=== PATIENT | male | born 1975 | race Two or more races ===

== ENCOUNTER 2023-07-30 23:27 | Inpatient (IN) | payer SELFPAY ==
[~2023-07-30] VITALS: Ht 175.3 cm; Wt 101.3 kg
[2023-07-31] VITALS (18 sets, daily range): BP systolic 125–162; BP diastolic 69–99; PULSE 65–101; RESP 15–20; TEMP 97.7–98.2; O2SAT 93–100
[2023-07-31 00:10] LABS: Basophils # (auto) 0 10 ^3/uL (0-0.2); Basophils % (auto) 0.7 % (0.0-2.0); Eosinophils # (auto) 0.2 10 ^3/uL (0-0.8); Eosinophils % (auto) 2.9 % (0.0-7.0); Hematocrit 45.7 % (41.0-53.0); Hemoglobin 16.1 g/dL (13.5-17.5); Lymphocytes # (auto) 3.1 10 ^3/uL (0.4-5.4); Lymphocytes % (auto) 43.4 % (10.0-50.0); Mean Corpuscular Hemoglobin 30.9 pg (28.0-32.0); Mean Corpuscular Hgb Conc. 35.2 g/dL (32.0-36.0); Mean Corpuscular Volume 87.9 fL (80.0-100.0); Monocytes # (auto) 0.7 10 ^3/uL (0-1.3); Monocytes % (auto) 9.8 % (0.0-12.0); Neutrophils % (auto) 43.2 % (37.0-80.0); Nucleated Red Blood Cells % 0.1 %; Red Blood Cells 5.19 10^6/uL (4.5-5.90); Red Cell Distribution Width 12.9 % (11.8-14.3)
[2023-07-31 00:27] LABS: Alanine Aminotransferase 48 U/L (7-40); Albumin 4.5 g/dL (3.2-4.8); Alkaline Phosphatase 77 U/L (46-116); Anion Gap 5 (5-15); Aspartate Aminotransferase 36 U/L (13-40); Bilirubin, Total 1.2 mg/dL (0.2-1.0); Blood Urea Nitrogen 13 mg/dL (9-23); Calcium 10.2 mg/dL (8.7-10.4); Carbon Dioxide 33 mmol/L (20-30); Chloride 105 mmol/L (98-107); Glucose 98 mg/dL (74-106); Potassium 3.1 mmol/L (3.5-5.1); Sodium 143 mmol/L (136-145); Total Protein 7.2 g/dL (5.7-8.2)
[2023-07-31] MEDS: ASPirin 325 MG TAB PO ONE (01:20)
[2023-07-31] MEDS ORDERED: ACETAMINOPHEN 325 MG TAB PO PRN (02:45)
[2023-07-31] MEDS ORDERED: TEMAZEPAM 15 MG CAP PO PRN (02:45)
[2023-07-31] MEDS ORDERED: ONDANSETRON HCL 4 MG/2 ML VIAL IV PRN (02:45)
[2023-07-31] MEDS ORDERED: MORPHINE SULFATE INJ 2 MG/ml SYRG IV PRN (02:45)
[2023-07-31] MEDS ORDERED: NITROGLYCERIN 0.4 MG SL TAB SL PRN (02:45)
[2023-07-31] MEDS: ENOXAPARIN SOD 100 MG/1 ML SYRINGE SC ONE (03:31)
[2023-07-31] MEDS: hydrALAZINE HCL 20 MG/ML VL IV ONE (04:40)
[2023-07-31] MEDS: ALBUTEROL SULF 2.5 MG/0.5ML(0.5%) NEB SOLN NEB PRN (05:45)
[2023-07-31] MEDS ORDERED: hydrALAZINE HCL 20 MG/ML VL IV PRN (09:15)
[2023-07-31] MEDS ORDERED: ASPirin 81 mg TAB PO SCH (10:00)
[2023-07-31] MEDS ORDERED: LISINOPRIL 5 MG TAB PO SCH (10:00)
[2023-07-31 10:05] LABS: Magnesium 2.1 mg/dL (1.6-2.6)
[2023-07-31 10:19] LABS: INR 1.05 (0.9-1.15); Partial Thromboplastin Time 32.6 SEC (24.5-34.5); Prothrombin Time 11.1 sec (9.3-11.8)
[2023-07-31] MEDS: POTASSIUM EFFERVESENT TAB 25 MEQ PO ONE (11:24)
[2023-07-31] MEDS: LOSARTAN POTASSIUM 50 MG TAB PO SCH (11:26)
[2023-07-31] MEDS: ASPirin 81 mg TAB PO SCH (11:26)
[2023-07-31] MEDS: methylPREDNISolone SOD SUCC 125 MG/2 ML VL IV ONE (11:28)
[2023-07-31] MEDS: ALBUTEROL SULF 2.5 MG/0.5ML(0.5%) NEB SOLN NEB SCH (11:34)
[2023-07-31] MEDS: IPRATROPIUM BROM 0.5 MG/2.5ML INH SOL NEB SCH (11:35)
[2023-07-31 13:26] LABS: Urine Bacteria FEW /hpf (None Seen); Urine Blood Negative /uL (Negative); Urine Clarity Turbid (Clear); Urine Color Yellow (Yellow); Urine Mucus FEW (None Seen); Urine Protein, UAD TRACE (Negative); Urine Specific Gravity 1.023 (1.001-1.035); Urine Urobilinogen Normal (Negative); Urine WBC 1 /hpf (0 - 3)
[2023-07-31 13:34] LABS: Amphetamine Screen, Urine Neg (NEGATIVE); Barbiturate Scree,Urine Neg (NEGATIVE); Benzodiazephine Screen, Urine Neg (NEGATIVE); Cannabinoid Screen, Urine Neg (NEGATIVE); Cocaine Screen, Urine Neg (NEGATIVE); Opiate Scree,Urine Neg (NEGATIVE); Phencyclidine Screen, Urine Neg (NEGATIVE)
[2023-07-31] MEDS ORDERED: LOSA-534 PO (14:34)
[2023-07-31] MEDS: ATORVASTATIN 20 MG TAB PO SCH (21:46)
[2023-07-31] MEDS: methylPREDNISolone SOD SUCC 40 MG/ML VL IV SCH (21:46)
[2023-07-31] MEDS: METOPROLOL TARTRATE 25 MG TAB PO SCH (21:47)
[2023-07-31] MEDS ORDERED: ATORVASTATIN 20 MG TAB PO SCH (22:00)
[2023-08-01] VITALS (15 sets, daily range): BP systolic 104–135; BP diastolic 65–85; PULSE 77–100; RESP 16–20; TEMP 97.7–98.4; O2SAT 94–100
[2023-08-01 07:05] LABS: Basophils # (auto) 0 10 ^3/uL (0-0.2); Basophils % (auto) 0.1 % (0.0-2.0); Eosinophils # (auto) 0 10 ^3/uL (0-0.8); Hematocrit 47.4 % (41.0-53.0); Hemoglobin 16.7 g/dL (13.5-17.5); Lymphocytes # (auto) 1.3 10 ^3/uL (0.4-5.4); Mean Corpuscular Hemoglobin 30.9 pg (28.0-32.0); Mean Corpuscular Hgb Conc. 35.2 g/dL (32.0-36.0); Mean Corpuscular Volume 87.7 fL (80.0-100.0); Monocytes # (auto) 0.2 10 ^3/uL (0-1.3); Monocytes % (auto) 1.5 % (0.0-12.0); Neutrophils % (auto) 89.4 % (37.0-80.0); Red Blood Cells 5.41 10^6/uL (4.5-5.90); Red Cell Distribution Width 12.9 % (11.8-14.3); White Blood Cell 14.5 10^3/uL (4.4-10.8)
[2023-08-01 07:07] LABS: Alanine Aminotransferase 42 U/L (7-40); Albumin 4.6 g/dL (3.2-4.8); Alkaline Phosphatase 76 U/L (46-116); Anion Gap 10 (5-15); Aspartate Aminotransferase 23 U/L (13-40); BUN/Creatinine Ratio 23.1 (10.0-20.0); Carbon Dioxide 26 mmol/L (20-30); Chloride 105 mmol/L (98-107); Glucose 141 mg/dL (74-106); Potassium 3.3 mmol/L (3.5-5.1); Sodium 141 mmol/L (136-145)
[2023-08-01 07:08] LABS: Total Protein 7.4 g/dL (5.7-8.2)
[2023-08-01 07:11] LABS: Blood Urea Nitrogen 31 mg/dL (9-23)
[2023-08-01] MEDS: SODIUM CHLORIDE 0.9% 500 ML IV ONE ×2 (07:45→09:15)
[2023-08-01] MEDS: SODIUM CHLORIDE 0.9% 1,000 ML IV SCH (09:00)
[2023-08-01] MEDS: POTASSIUM CHLORIDE 40 MEQ, LIDOCAINE 1% (LOCAL ANESTH.) 4 ML in SODIUM CHL 0.9% 250 ML IV ONE (09:39)
[2023-08-01] MEDS: ENOXAPARIN SOD 40 MG/0.4 ML SYRINGE SC SCH (09:50)
[2023-08-01] MEDS ORDERED: methylPREDNISolone SOD SUCC 40 MG/ML VL IV SCH (10:00)
[2023-08-01] MEDS: LEVALBUTEROL HCL 1.25 MG/3 ML NEB NEB SCH (11:35)
[2023-08-02] VITALS (19 sets, daily range): BP systolic 124–151; BP diastolic 63–99; PULSE 58–94; RESP 12–20; TEMP 97.4–98; O2SAT 94–100
[2023-08-02 06:16] LABS: Basophils # (auto) 0.1 10 ^3/uL (0-0.2); Basophils % (auto) 0.6 % (0.0-2.0); Eosinophils # (auto) 0 10 ^3/uL (0-0.8); Eosinophils % (auto) 0.4 % (0.0-7.0); Hematocrit 45.9 % (41.0-53.0); Hemoglobin 16.1 g/dL (13.5-17.5); Lymphocytes # (auto) 3.9 10 ^3/uL (0.4-5.4); Lymphocytes % (auto) 29.3 % (10.0-50.0); Mean Corpuscular Hgb Conc. 35.1 g/dL (32.0-36.0); Mean Corpuscular Volume 88.3 fL (80.0-100.0); Monocytes # (auto) 0.7 10 ^3/uL (0-1.3); Monocytes % (auto) 5.1 % (0.0-12.0); Neutrophils # (auto) 8.5 10 ^3/uL (1.6-8.6); Neutrophils % (auto) 64.6 % (37.0-80.0); Nucleated Red Blood Cells % 0.2 %; Red Cell Distribution Width 12.9 % (11.8-14.3); White Blood Cell 13.2 10^3/uL (4.4-10.8)
[2023-08-02 06:20] LABS: Anion Gap 8 (5-15); Carbon Dioxide 27 mmol/L (20-30); Chloride 107 mmol/L (98-107); Potassium 3.3 mmol/L (3.5-5.1); Sodium 142 mmol/L (136-145)
[2023-08-02 06:21] LABS: Calcium 9.2 mg/dL (8.7-10.4)
[2023-08-02 06:25] LABS: Glucose 102 mg/dL (74-106)
[2023-08-02 06:26] LABS: BUN/Creatinine Ratio 30.1 (10.0-20.0); Blood Urea Nitrogen 34 mg/dL (9-23); Magnesium 2.5 mg/dL (1.6-2.6)
[2023-08-02] MEDS: POTASSIUM CHLORIDE 60 MEQ, LIDOCAINE 1% (LOCAL ANESTH.) 6 ML in SODIUM CHL 0.9% 500 ML IV ONE (10:11)
[2023-08-02] MEDS: PANTOPRAZOLE 40 MG/10 ML VIAL INJ IV SCH (10:11)
[2023-08-02] MEDS: methylPREDNISolone SOD SUCC 40 MG/ML VL IV SCH (10:11)
[2023-08-02] MEDS ORDERED: IODIXANOL 320MG/ML 100ML BTL IV ONE (12:52)
[2023-08-02] MEDS ORDERED: LIDOCAINE 2%HCL (LOCAL ANESTH.) INJ 20ML MDV ONE (12:52)
[2023-08-02] MEDS ORDERED: MIDAZOLAM HCL 2MG/2ML 2ml VIAL (1mg/ml) ONE (12:55)
[2023-08-02] MEDS ORDERED: HEPARIN SODIUM (PORCINE) 5000 UNITS/ML 1ML VIAL ONE (12:55)
[2023-08-02] MEDS ORDERED: ANGIOMAX 250 MG VIAL IV ONE (12:55)
[2023-08-02] MEDS ORDERED: fentaNYL CITRATE 100 MCG/2 ML VL ONE (12:55)
[2023-08-02] MEDS ORDERED: VERAPAMIL 2.5MG/ML INJ 2ML VIAL IV ONE (12:56)
[2023-08-02] MEDS ORDERED: SODIUM CHL 0.9% 0 ML ONE (12:56)
[2023-08-03] VITALS (11 sets, daily range): BP systolic 122–137; BP diastolic 69–94; PULSE 66–95; RESP 16–20; TEMP 36.6; O2SAT 94–99
[2023-08-03 05:55] LABS: Basophils # (auto) 0 10 ^3/uL (0-0.2); Basophils % (auto) 0.4 % (0.0-2.0); Eosinophils # (auto) 0 10 ^3/uL (0-0.8); Eosinophils % (auto) 0.1 % (0.0-7.0); Hematocrit 43.2 % (41.0-53.0); Hemoglobin 14.9 g/dL (13.5-17.5); Lymphocytes # (auto) 2.2 10 ^3/uL (0.4-5.4); Lymphocytes % (auto) 19.1 % (10.0-50.0); Mean Corpuscular Hemoglobin 30.6 pg (28.0-32.0); Mean Corpuscular Hgb Conc. 34.4 g/dL (32.0-36.0); Monocytes # (auto) 0.6 10 ^3/uL (0-1.3); Monocytes % (auto) 5.1 % (0.0-12.0); Neutrophils # (auto) 8.7 10 ^3/uL (1.6-8.6); Neutrophils % (auto) 75.3 % (37.0-80.0); Red Blood Cells 4.86 10^6/uL (4.5-5.90); Red Cell Distribution Width 12.7 % (11.8-14.3); White Blood Cell 11.6 10^3/uL (4.4-10.8)
[2023-08-03 06:21] LABS: Alanine Aminotransferase 37 U/L (7-40); Alkaline Phosphatase 64 U/L (46-116); Anion Gap 8 (5-15); Aspartate Aminotransferase 20 U/L (13-40); BUN/Creatinine Ratio 22.5 (10.0-20.0); Blood Urea Nitrogen 20 mg/dL (9-23); Calcium 9.1 mg/dL (8.7-10.4); Carbon Dioxide 27 mmol/L (20-30); Chloride 109 mmol/L (98-107); Glucose 107 mg/dL (74-106); Magnesium 2.6 mg/dL (1.6-2.6); Potassium 3.6 mmol/L (3.5-5.1); Sodium 144 mmol/L (136-145); Total Protein 6.2 g/dL (5.7-8.2)
[2023-08-03 06:38] LABS: CRP High Sensitivity 0.28 mg/dL (<1.0)
[2023-08-03 07:08] LABS: Erythrocyte Sedimentation Rate 2 mm/hr (0-20)
[2023-08-03] MEDS ORDERED: PANT40TA2 PO (09:06)
[2023-08-03] MEDS ORDERED: MET25T PO (09:06)
[2023-08-03] MEDS ORDERED: ATOR20TA50 PO (09:06)
[2023-08-03] MEDS ORDERED: ASPI-325 PO (09:06)
[2023-08-03] MEDS ORDERED: ALBUAER3 IN (10:47)
== END 2023-08-03 13:25 | disposition home or self-care (01) | DRG 280 ==
LOC: ER 23:27 → TELE 07-31 02:49 → TELE-WESTW 07-31 10:23
PROVIDERS: ADMIT Internal Medicine; ATTEND Internal Medicine
PROC: 4A023N7 Measurement of Cardiac Sampling and Pressure, Left Heart, Percutaneous Approach (ICD-10-PCS; principal; 2023-08-02)
PROC: B211YZZ Fluoroscopy of Multiple Coronary Arteries using Other Contrast (ICD-10-PCS; 2023-08-02)
DX: I21.4 Non-ST elevation (NSTEMI) myocardial infarction (principal); J96.01 Acute respiratory failure with hypoxia; N17.0 Acute kidney failure with tubular necrosis; J44.1 Chronic obstructive pulmonary disease with (acute) exacerbation; J45.901 Unspecified asthma with (acute) exacerbation; I42.2 Other hypertrophic cardiomyopathy; I47.29 Other ventricular tachycardia; E87.6 Hypokalemia; E66.9 Obesity, unspecified; I16.0 Hypertensive urgency; E78.5 Hyperlipidemia, unspecified; I25.10 Atherosclerotic heart disease of native coronary artery without angina pectoris; I51.4 Myocarditis, unspecified; K21.9 Gastro-esophageal reflux disease without esophagitis; Z82.49 Family history of ischemic heart disease and other diseases of the circulatory system; Z83.3 Family history of diabetes mellitus; Z68.33 Body mass index [BMI] 33.0-33.9, adult
CPT/HCPCS: 36415; 80048; 80053; 80061; 80307; 81001; 83036; 83735; 83880; 84443; 84484; 85025; 85379; 85610; 85652; 85730; 86141; 86850; 86900; 86901; 93005; 93306; 94640; 96372; 96374; 99152; C9113; G0378; J2001; J2250; Q9967

== ENCOUNTER 2024-01-16 23:17 | Inpatient (IN) | payer MEDICAID ==
[~2024-01-16] VITALS: Ht 175.3 cm; Wt 100.2 kg
[~2024-01-16 23:17] MED LIST: ALBUAER3 IN; ASPI-325 PO; ATOR20TA50 PO; LOSA-534 PO; MET25T PO; PANT40TA2 PO
[2024-01-17] VITALS (8 sets, daily range): BP systolic 128–143; BP diastolic 77–85; PULSE 66–103; RESP 16–19; TEMP 97.9–98.1; O2SAT 92–98
[2024-01-17 00:02] LABS: Basophils # (auto) 0.1 10 ^3/uL (0-0.2); Eosinophils # (auto) 0.2 10 ^3/uL (0-0.8); Eosinophils % (auto) 3.9 % (0.0-7.0); Hematocrit 45.3 % (41.0-53.0); Hemoglobin 15.6 g/dL (13.5-17.5); Lymphocytes # (auto) 2.9 10 ^3/uL (0.4-5.4); Mean Corpuscular Hemoglobin 30.1 pg (28.0-32.0); Mean Corpuscular Hgb Conc. 34.5 g/dL (32.0-36.0); Mean Corpuscular Volume 87.3 fL (80.0-100.0); Monocytes # (auto) 0.5 10 ^3/uL (0-1.3); Monocytes % (auto) 7.6 % (0.0-12.0); Neutrophils # (auto) 2.5 10 ^3/uL (1.6-8.6); Neutrophils % (auto) 40.5 % (37.0-80.0); Nucleated Red Blood Cells % 0.1 %; Platelet Count (auto) 201 10^3/uL (140-450); Red Blood Cells 5.19 10^6/uL (4.5-5.90); Red Cell Distribution Width 12.6 % (11.8-14.3); White Blood Cell 6.2 10^3/uL (4.4-10.8)
[2024-01-17 00:20] LABS: Chloride 106 mmol/L (98-107); Potassium 3.1 mmol/L (3.5-5.1); Sodium 142 mmol/L (136-145)
[2024-01-17 00:21] LABS: Anion Gap 6 (5-15); Calcium 9.1 mg/dL (8.7-10.4); Carbon Dioxide 30 mmol/L (20-31)
[2024-01-17 00:26] LABS: BUN/Creatinine Ratio 12.1 (10.0-20.0); Blood Urea Nitrogen 12 mg/dL (9-23); Glucose 98 mg/dL (74-106)
--- NOTE | 2024-01-17 00:28 | DVH ---
XY CHEST TWO VIEWS ROUTINE CLINICAL HISTORY: sob COMPARISON: None TECHNIQUE: Frontal and lateral view of the chest was obtained FINDINGS: Lines and Tubes: None Lungs: No focal consolidation. Pleura: No effusion. No pneumothorax. Cardiomediastinal contours: Unremarkable Bones: No acute osseous abnormality. IMPRESSION: No acute cardiopulmonary disease.
[2024-01-17] MEDS: ALBUTEROL SULF 2.5 MG/0.5ML(0.5%) NEB SOLN NEB ONE (00:34)
[2024-01-17] MEDS: IPRATROPIUM BROM 0.5 MG/2.5ML INH SOL NEB ONE (00:34)
--- NOTE | 2024-01-17 00:52 | ED.PDOC ---
History of Present Illness HPI Comments 48 y/o M, with a Hx of GERD, HTN, FL, PUD, and obesity, presents with c/o shortness of breath and wheezing for 1 week. Patient endorses on unprovoked onset of persisting symptoms for the past week that worsens whenever laying down. Patient comments on similar symptoms to when he had an FL in the past and needed to receive heart catheterization in April, this year. Patient comments on no recent stress, injuries, sick contact, travel, or substance use/exposure. Patient endorses no further relevant or pertinent past medical, surgical, or family Hx. Patient denies having any chest pain, phlegm production, hemoptysis, dyspnea, fever, chills, or other associated symptoms or modifiers at this time. Chief Complaint: Shortness of Breath Time Seen by MD: 23:50 Reviewed Notes: Nurses Notes, Medications, Allergies Allergies: Coded Allergies: NO KNOWN ALLERGIES (Unverified , 07/30/23) Home Meds Active Scripts Albuterol Sulfate (VENTOLIN MDI) 90 Mcg Ih, 90 MCG IN PRN for 30 Days, #1 INH 3 Refills Prov:MIRIAM MACK RESIDENT 08/03/23 Pantoprazole Sodium Sesquihydr (Protonix) 40 Mg Tab, 40 MG PO DAILY for 30 Days, #30 TAB Prov:MIRIAM MACK RESIDENT 08/03/23 Metoprolol Tartrate (Lopressor) 25 Mg Tb, 12.5 MG PO BID for 30 Days, #30 TAB Prov:MIRIAM MACK [facility] 08/03/23 Atorvastatin Calcium (ATORVASTATIN CALCIUM) 20 Mg Tab, 2 TAB PO DAILY for 30 Days, #60 TAB 3 Refills Prov:MIRIAM MACK 08/03/23 Aspirin (Aspirin Low Dose) 81 Mg Tab, 81 MG PO DAILY for 30 Days, #30 TAB Prov:MIRIAM MACK RESIDENT 08/03/23 Reported Medications Losartan Potassium (Losartan Potassium) 50 Mg Tab, 50 MG PO DAILY for 30 Days, MG 07/31/23 Information Source: Patient Mode of Arrival: Ambulatory Severity: Moderate Timing: Weeks Duration: Since onset Prehospital treatment: None Past Medical History PAST MEDICAL HISTORY: GERD, HTN, FL, PUD Past Medical History (Other): obesity Surgical History (Other): heart catheterization Family History Family History: Reviewed,noncontributory to illness Social History Smoker: Non-Smoker Alcohol: Denies ETOH Use Drugs: Denies Drug Use Lives In: Home Constitutional: denies: chills, diaphoresis, fatigue, fever, malaise, sweats, weakness, others EENTM: denies: blurred vision, double vision, ear bleeding, ear discharge, ear drainage, ear pain, ear ringing, eye pain, eye redness, hearing loss, mouth pain, mouth swelling, nasal discharge, nose bleeding, nose congestion, nose pain, photophobia, tearing, throat pain, throat swelling, voice changes, others Respiratory: reports: shortness of breath, wheezing; denies: cough, hemoptysis, orthopnea, SOB at rest, SOB with excertion, stridor, others Cardiovascular: denies: chest pain, dizzy spells, diaphoresis, Dyspnea on exertion, edema, irregular heart beat, left arm pain, lightheadedness, palp itations, PND, syncope, others Gastrointestinal: denies: abdomen distended, abdominal pain, blood streaked bowels, constipated, diarrhea, dysphagia, difficulty swallowing, hematemesis, melena, nausea, poor appetite, poor fluid intake, rectal bleeding, rectal pain, vomiting, others Genitourinary: denies: burning, dysuria, flank pain, frequency, hematuria, incontinence, penile discharge, penile sore, pain, testicle pain, testicle swelling, urgency, others Neurological: denies: dizziness, fainting, headache, left sided numbness, left sided weakness, numbness, paresthesia, pre-existing deficit, right sided numbness, right sided weakness, seizure, speech problems, tingling, tremors, weakness, others Musculoskeletal: denies: back pain, gout, joint pain, joint swelling, muscle pain, muscle stiffness, neck pain, others Integumetry: denies: bruises, change in color, change in hair/nails, dryness, laceration, lesions, lumps, rash, wounds, others Allergic/Immunocompromised: denies: Difficulty Healing, Frequent Infections, Hives, Itching, others Hematologic/Lymphatic: denies: anemia, blood clots, easy bleeding, easy brui sing, swollen glands, others Endocrine: denies: excessive hunger, excessive sweating, excessive thirst, ex cessive urination, flushing, intolerance to cold, intolerance to heat, unexplained weight gain, unexplained weight loss, others Psychiatric: denies: anxiety, bipolar disorder, depression, hopeless, panic disorder, schizophrenia, sleepless, suicidal, others All Other Systems: Reviewed and Negative Physical Exam General Appearance: No Apparent Distress, Obese HEENT: Normal ENT Inspection, Pharynx Normal, TMs Normal Neck: Full Range of Motion, Non-Tender, Normal, Normal Inspection Respiratory: Chest Non-Tender, No Accessory Muscle Use, Wheezing (bilateral expiratory wheezes ) Cardiovascular: No Edema, No JVD, No Murmur, No Gallop, Normal Peripheral Pulses, Regular Rate/Rhythm Breast Exam: Deferred Gastrointestinal: No Organomegaly, Non Tender, No Pulsatile Mass, Normal Bowel Sounds, Soft Genitalia: Deferred Pelvic: Deferred Rectal: Deferred Extremities: No calf tenderness, Normal capillary refill, Normal inspection, Normal range of motion, Non-tender, No pedal edema Musculoskeletal : Apperance: Normal Neurologic: Alert, drainman II-XII nml as Tested, No Motor Deficits, Normal Affect, Normal Mood, No Sensory Deficits Cerebellar Function: Normal Reflexes: Normal Skin: Dry, Normal Color, Warm Lymphatic: No Adenopathy Was a procedure done? Was a procedure done?: No EKG EKG : Pulse Rate (adult): 67 [place]: Normal Cardiac Rhythm: NSR Block: None Hypertrophy: None ST: Normal Differential Dx Considerations may include: bronchitis, Covid19, PNA, URI, viral syndrome, asthma exacerbation X-Ray, Labs, Meds, VS Vital Signs Date Time Temp Pulse Resp B/P (MAP) Pulse Ox O2 Delivery O2 Flow Rate FiO2 01/17/24 00:52 67 01/17/24 00:39 97 Room Air* 0 21 01/17/24 00:39 18 97 Room Air* 0 21 01/17/24 00:25 65 01/16/24 23:28 67 01/16/24 23:25 97.3 79 20 163/115 (131) 97 Lab Test 01/17/24 00:40 01/16/24 23:46 Range/Units Troponin I High Sensitivity Pending 150 *H </=54 ng/L White Blood Count 6.2 4.4-10.8 10^3/uL Red Blood Count 5.19 4.5-5.90 10^6/uL Hemoglobin 15.6 13.5-17.5 g/dL Hematocrit 45.3 41.0-53.0 % Mean Corpuscular Volume 87.3 80.0-100.0 fL Mean Corpuscular Hemoglobin 30.1 28.0-32.0 pg Mean Corpuscular Hemoglobin Concent 34.5 32.0-36.0 g/dL Red Cell Distribution Width 12.6 11.8-14.3 % Platelet Count 201 140-450 10^3/uL Mean Platelet Volume 9.2 6.9-10.8 fL Neutrophils (%) (Auto) 40.5 37.0-80.0 % Lymphocytes (%) (Auto) 47.0 10.0-50.0 % Monocytes (%) (Auto) 7.6 0.0-12.0 % Eosinophils (%) (Auto) 3.9 0.0-7.0 % Basophils (%) (Auto) 1.0 0.0-2.0 % Neutrophils # (Auto) 2.5 1.6-8.6 10 ^3/uL Lymphocytes # (Auto) 2.9 0.4-5.4 10 ^3/uL Monocytes # (Auto) 0.5 0-1.3 10 ^3/uL Eosinophils # (Auto) 0.2 0-0.8 10 ^3/uL Basophils # (Auto) 0.1 0-0.2 10 ^3/uL Nucleated Red Blood Cells 0.1 % Sodium Level 142 136-145 mmol/L Potassium Level 3.1 L 3.5-5.1 mmol/L Chloride Level 106 98-107 mmol/L Carbon Dioxide Level 30 20-31 mmol/L Anion Gap 6 5-15 Blood Urea Nitrogen 12 9-23 mg/dL Creatinine 0.99 0.700-1.30 mg/dL Glomerular Filtration Rate Calc 94 >90 mL/min BUN/Creatinine Ratio 12.1 10.0-20.0 Serum Glucose 98 74-106 mg/dL Calcium Level 9.1 8.7-10.4 mg/dL B-Type Natriuretic Peptide 41.67 0-100 pg/mL Current Medications Medications (Trade) Dose Ordered Sig/Elana Route Start Time Stop Time Status Last Admin Albuterol (Ventolin Medneb) 5 mg ONCE ONCE NEB 01/17/24 00:00 01/17/24 00:01 DC 01/17/24 00:34 Ipratropium [place] (Atrovent Medneb) 0.5 mg ONCE ONCE NEB 01/17/24 00:00 01/17/24 00:01 DC 01/17/24 00:[address] [address] Ph: [phone] DIAGNOSTIC IMAGING Diagnostic Imaging Report : [id number] Signed PATIENT: KIANNA PIMENTEL ACCT: [id number] UNIT: [id number] : 1975 LOC: ER ROOM / BED: / AGE / SEX: 48 / M ADM STATUS: REG ER SERVICE [id number] ORDERING PHYSICIAN: ARTIE GARCIA MD PROCEDURE(s): CXR2 - CHEST TWO VIEWS ROUTINE REASON: sob ORDER NUMBER(s): [id number], ACCESSION NUMBER(s): [id number] XY CHEST TWO VIEWS ROUTINE CLINICAL HISTORY: sob COMPARISON: None TECHNIQUE: Frontal and lateral view of the chest was obtained FINDINGS: Lines and Tubes: None Lungs: No focal consolidation. Pleura: No effusion. No pneumothorax. Cardiomediastinal contours: Unremarkable Bones: No acute osseous abnormality. IMPRESSION: No acute cardiopulmonary disease. ATED BY: SUNITA PARRA DO DICTATED DATE/TIME: 01/17/2425 SIGNED BY: SUNITA PARRA DO SIGNED DATE/TIME: 01/17/2425 CC: Time of 1ST Reevaluation: 00:20 Reevaluation 1ST: Unchanged Patient Education/Counseling: Diagnosis, Treatment Family Education/Counseling: No Family Present Departure 1 Departure Time of Disposition: 01:22 (Patient presented with chest pain that was concerni ng for possible STEMI, ACS, PE, Pneumonia, Muscle Strain, COPD, Dissection. Data: 1. I ordered and reviewed the result of at least 3 labs including a CBC, BMP, and Troponin. 2. I independently interpreted the following tests: EKG which shows sinus arrhythmia and Chest X-ray which shows benign chest.Risk:This patient has a high risk of morbidity due to further diagnostic testing or treatment and may suffer from an acute cardiac or respiratory disorder. Workup reveals concern for ACS versus COPD exacerbation and patient should be admitted for further workup and possible expert consultation. ) Impression: Primary Impression: Acute chest pain Additional Impression: Shortness of breath Disposition: ADMITTED INPATIENT Admit to: Med Surg Condition: Serious Critical Care Note Critical Care Time?: Yes Critical care comment: Active chest pain Authorized and Performed by: Artie Garcia MD Total critical care time: Approximately 36 minutes Due to a high probability of clinically significant, life threatening deterioration, the patient required my highest level of preparedness to intervene emergently and I personally spent this critical care time directly and personally managing the patient. This critical care time included obtaining a history; examining the patient; pulse oximetry; ordering and review of studies; arranging urgent treatment with development of a management plan; evaluation of patient's response to treatment; frequent reassessment; and, discussions with other providers. This critical care time was performed to assess and manage the high probability of imminent, life-threatening deterioration that could result in multi-organ failure. It was exclusive of separately billable procedures and treating other patients and teaching time. Please see my other sections and the rest of the note for further information on patient assessment and treatment. Stability Stability form required: No Heart Score Heart Score: Heart Score Response (Comments) Value History Moderate Suspicious 1 EKG Normal 0 Age 45-64 1 Risk Factors 1 or 2 risk factors 1 Troponin >3 x's Normal limit 2 Total 5 I personally scribed for ARTIE GARCIA MD ([email or web address]) on 01/17/24 at 00:52. Electronically submitted by Bobby Duque ([email or web address]). I personally scribed for ARTIE GARCIA MD ([email or web address]) on 01/17/24 at 01:20. Electronically submitted by Bobby Duque ([email or web address]). ARTIE GARCIA MD Jan 17, 2024 00:52
[2024-01-17] MEDS: AZITHROMYCIN 250 MG TAB PO ONE (02:24)
[2024-01-17] MEDS: methylPREDNISolone SOD SUCC 125 MG/2 ML VL IV ONE (02:25)
[2024-01-17 03:37] LABS: Urine Bacteria None Seen /hpf (None Seen)
[2024-01-17 04:06] LABS: Urine Blood Negative /uL (Negative); Urine Clarity Clear (Clear); Urine Color Yellow (Yellow); Urine Mucus FEW (None Seen); Urine Protein, UAD TRACE (Negative); Urine Specific Gravity 1.024 (1.001-1.035); Urine Urobilinogen Normal (Negative); Urine WBC 1 /hpf (0 - 3)
[2024-01-17] MEDS ORDERED: ONDANSETRON HCL 4 MG/2 ML VIAL IV PRN (05:30)
[2024-01-17] MEDS ORDERED: ACETAMINOPHEN 325 MG TAB PO PRN (05:30)
[2024-01-17] MEDS ORDERED: NITROGLYCERIN 0.4 MG SL TAB SL PRN (05:30)
[2024-01-17] MEDS ORDERED: MORPHINE SULFATE INJ 2 MG/ml SYRG IV PRN (05:30)
--- NOTE | 2024-01-17 06:13 | ECG ---
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
--- NOTE | 2024-01-17 06:21 | ECG ---
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
--- NOTE | 2024-01-17 06:21 | ECG ---
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
--- NOTE | 2024-01-17 07:09 | DVHHP2 ---
History of Present Illness Reason for Visit: Shortness of breath History of Present Illness 48-year-old male presents for evaluation of shortness for breath. Patient reports a one-week history of worsening shortness of breath which worsens with lying flat. Denies chest pain or palpitations. Denies cough or fever. No other acute complaints reported. Past Medical History Hypertension, mi, GERD Past Surgical History PTCA Family History Noncontributory Smoke: No ALCOHOL: none Drugs: None Lives: with Family Review of Systems Review of Systems Review of systems are negative otherwise addressed HPI. Allergies: Coded Allergies: NO KNOWN ALLERGIES (Unverified , 07/30/23) Medications Current Medications Medications Dose Ordered Sig/Elana Route Start Time Stop Time Status Last Admin Dose Admin Aspirin 162 mg DAILY PO 01/17/24 10:00 Atorvastatin Calcium 40 mg HS PO 01/17/24 22:00 Metoprolol Tartrate 12.5 mg BID PO 01/17/24 10:00 Losartan Potassium 50 mg DAILY PO 01/17/24 10:00 Albuterol 2.5 mg Q6HPRN PRN NEB 01/17/24 05:30 Temazepam 15 mg QHSP PRN PO 01/17/24 05:30 Ondansetron HCl 4 mg Q4HP PRN IV 01/17/24 05:30 Acetaminophen 650 mg Q6HP PRN PO 01/17/24 05:30 Nitroglycerin 0.4 mg Q5MINP PRN SL 01/17/24 05:30 Morphine Sulfate 2 mg Q30M PRN IV 01/17/24 05:30 Exam Vital Signs Vital Signs Date Time Temp Pulse Resp B/P (MAP) Pulse Ox O2 Delivery O2 Flow Rate FiO2 01/17/24 06:00 75 14 130/81 (97) 94 01/17/24 03:04 97.8 97.8 01/17/24 03:02 Room Air* 0 21 Exam Gen: 48-year-old no apparent distress. Skin: Warm, dry, normal color and texture, no rash. HEENT: Normocephalic atraumatic, mucous membranes moist and pink. Neck: Cervical and supraclavicular nodes normal without enlargement, trachea is midline, thyroid gland is normal without masses. Pulmonary: Clear to auscultation and percussion bilaterally. Cardiac: Regular rate and rhythm. No murmur Abdomen: Soft, nontender, nondistended, bowel sounds present all 4 quadrants, no guarding, no rigidity, no organomegaly. Extremities: No cyanosis, clubbing, no edema Neuro: Cranial nerves II through XII grossly intact, normal affect and speech, no focal motor deficits. Labs/Xrays ORDERING PHYSICIAN: AYAN RAMOS NP PROCEDURE(s): ECIDC - ECHO 2D MODE CARDIAC DOP REASON: ef ORDER NUMBER(s): [id number], ACCESSION NUMBER(s): [id number] APPROVED REPORT EXAM: Two-dimensional and M-mode echocardiogram with Doppler and color Doppler. Blood Pressure: 162/81 mmHg INDICATION Evaluation of EF RISK FACTORS Height: 5'9, Weight: 209 DIMENSIONS LVDd 4.7 (3.8-5.7cm) LA (2D) 4.8 (1.9-4.0cm) Aortic Root 4.2 (2.0- 3.7cm) LVDs 2.8 (2.5-4.0cm) LA (MM) (1.9-4.0cm) Aortic Cusp Exc 1.9 (1.5- 2.0cm) EF (%) 71.0 (55-70%) Rt. Atrium (1.9-4.0cm) Asc. Aorta cm IVSd 2.3 (0.7-1.1cm) RV (D) (1.8-2.4cm) PWd 1.5 (0.7-1.1cm) Mitral Valve Mitral Mitral Stenosis E wave 0.72m/s MV Mean GR. mmHg A wave 0.66m/s MV Peak GR. 27mmHg E/A ratio 1.1 2D MVA cm2 DECEL Time 190ms PRESS 1/2 Time ms Aortic Valve Aortic Valve Aortic Stenosis V1 1.21m/s AO Mean GR. 6mmHg V2 1.66m/s AO Peak GR. 11mmHg LVOT Diameter 2.1 (1.8-2.4cm) Doppler LIVAN 2.52cm2 Pulmonic Valve V2 1.19m/s Tricuspid Valve TR Velocity 1.66m/s RVSP 14mmHg Conclusion Severe concentric left ventricular hypertrophy with a maximal left ventricular septal wall thickness of 1.5 cm, no significant gradient in the left ventricular outflow was identified indicating nonobstructive hypertrophic cardiomyopathy. Hyperdynamic left ventricular estimated ejection fraction is 60% There is a grade 1 diastolic dysfunction. Normal right ventricular size and dimension. Normal right ventricular systolic function. Normal biatrial size and dimension. Normal aortic valve structure and function. Normal mitral valve structure and function. Normal tricuspid valve structure and function. The pulmonary valve is grossly normal. No pericardial effusion. SIGNED BY: LAVELLE WATKINS MD ORDERING PHYSICIAN: ARTIE GARCIA MD PROCEDURE(s): CXR2 - CHEST TWO VIEWS ROUTINE REASON: sob ORDER NUMBER(s): [id number], ACCESSION NUMBER(s): [id number] XY CHEST TWO VIEWS ROUTINE CLINICAL HISTORY: sob COMPARISON: None TECHNIQUE: Frontal and lateral view of the chest was obtained FINDINGS: Lines and Tubes: None Lungs: No focal consolidation. Pleura: No effusion. No pneumothorax. Cardiomediastinal contours: Unremarkable Bones: No acute osseous abnormality. IMPRESSION: No acute cardiopulmonary disease. Labs Test 01/17/24 03:36 01/17/24 02:56 01/16/24 23:46 Range/Units Urine Color Yellow Yellow Urine Clarity Clear Clear Urine pH 6.0 5.0-9.0 Urine Specific [place] 1.024 1.001-1.035 Urine Protein Trace H Negative Urine Ketones Negative Negative Urine Blood Negative Negative /uL Urine Nitrite Negative Negative Urine Bilirubin Negative Negative Urine Urobilinogen Normal Negative mg/dL Urine Leukocyte Esterase Negative Negative /uL Urine RBC 1 0 - 3 /hpf Urine WBC 1 0 - 3 /hpf Urine Squamous Epithelial Cells None seen <5 /hpf Urine Bacteria None seen None Seen /hpf Urine Mucus Few None Seen Urine Glucose Normal Normal mg/dL Troponin I High Sensitivity 126 *H </=54 ng/L White Blood Count 6.2 4.4-10.8 10^3/uL Red Blood Count 5.19 4.5-5.90 10^6/uL Hemoglobin 15.6 13.5-17.5 g/dL Hematocrit 45.3 41.0-53.0 % Mean Corpuscular Volume 87.3 80.0-100.0 fL Mean Corpuscular Hemoglobin 30.1 28.0-32.0 pg Mean Corpuscular Hemoglobin Concent 34.5 32.0-36.0 g/dL Red Cell Distribution Width 12.6 11.8-14.3 % Platelet Count 201 140-450 10^3/uL Mean Platelet Volume 9.2 6.9-10.8 fL Neutrophils (%) (Auto) 40.5 37.0-80.0 % Lymphocytes (%) (Auto) 47.0 10.0-50.0 % Monocytes (%) (Auto) 7.6 0.0-12.0 % Eosinophils (%) (Auto) 3.9 0.0-7.0 % Basophils (%) (Auto) 1.0 0.0-2.0 % Neutrophils # (Auto) 2.5 1.6-8.6 10 ^3/uL Lymphocytes # (Auto) 2.9 0.4-5.4 10 ^3/uL Monocytes # (Auto) 0.5 0-1.3 10 ^3/uL Eosinophils # (Auto) 0.2 0-0.8 10 ^3/uL Basophils # (Auto) 0.1 0-0.2 10 ^3/uL Nucleated Red Blood Cells 0.1 % Sodium Level 142 136-145 mmol/L Potassium Level 3.1 L 3.5-5.1 mmol/L Chloride Level 106 98-107 mmol/L Carbon Dioxide Level 30 20-31 mmol/L Anion Gap 6 5-15 Blood Urea Nitrogen 12 9-23 mg/dL Creatinine 0.99 0.700-1.30 mg/dL Glomerular Filtration Rate Calc 94 >90 mL/min BUN/Creatinine Ratio 12.1 10.0-20.0 Serum Glucose 98 74-106 mg/dL Calcium Level 9.1 8.7-10.4 mg/dL B-Type Natriuretic Peptide 41.67 0-100 pg/mL Assessment/Plan Assessment/Plan Assessment Elevated troponin rule out NSTEMI Respiratory distress Hypertension History of [place] Plan Admit the patient to telemetry to the hospitalist cardiology consultation Resume medications treatment per orders Plan discussed with: Patient My Orders Orders - AYAN RAMOS Procedure Category Date Status Time Basic Metabolic Panel LAB 01/18/24 Verified 04:00 Aspirin Tablet PHA 01/17/24 In Process 10:00 Atorvastatin (Lipitor) PHA 01/17/24 In Process 22:00 Metoprolol Tartrate PHA 01/17/24 In Process Tablet (Lopressor Ta 10:00 Losartan Tablet PHA 01/17/24 In Process (Cozaar Tablet) 10:00 Albuterol Medneb PHA 01/17/24 In Process (Ventolin Medneb) 05:30 Admit ADMIT 01/17/24 Transmitted 05:28 Temazepam (Restoril) PHA 01/17/24 In Process 05:30 Ondansetron Hcl PHA 01/17/24 In Process (Zofran) 05:30 Cardiac DIET 01/17/24 Transmitted Diet-2gna,Lofat,Lochol Breakfast Condition: Fair ENRIQUE 01/17/24 In Process 05:28 Acetaminophen Tablet PHA 01/17/24 In Process (Tylenol Tablet) 05:30 Bedrest With Bathroom [facility] 01/17/24 In Process Privileg 05:28 Nitroglycerin [facility] 01/17/24 In Process Sublingual (Ntrostat 05:30 Morphine Sulfate PHA 01/17/24 In Process Injection 05:30 Stat Ekg For Chest [facility] 01/17/24 In Process Pain 05:28 Notify Md Of Changes [facility] 01/17/24 In Process From Base 05:28 Painter For [facility] 01/17/24 In Process 24 Hours 05:28 Emergency Dysrhythmia [facility] 01/17/24 In Process Protocol 05:28 Rhythm Strips Once [facility] 01/17/24 In Process Every Shift 05:28 Oxygen By Nasal RT 01/17/24 Transmitted Cannula 05:28 Date of Service: Jan 17, 2024 Billing Provider: AYAN RAMOS Common Visit Codes: [id number] INP/OBS CARE (HIGH) AYAN RAMOS Jan 17, 2024 07:09
[2024-01-17] MEDS: ASPirin 81 mg TAB PO SCH (09:59)
[2024-01-17] MEDS: LOSARTAN POTASSIUM 50 MG TAB PO SCH (10:00)
[2024-01-17] MEDS: METOPROLOL TARTRATE 25 MG TAB PO SCH (10:00)
[2024-01-17] MEDS: POTASSIUM CHL 20 Meq TABLET PO ONE (12:46)
--- NOTE | 2024-01-17 17:00 | DVHINCON2 ---
Date Seen: Jan 17, 2024 Referring Physician MD Cierra Reason for Consultation NSTEMI History of Present Illness This is a 48-year-old man who presented to the emergency room with a chief complaint of shortness of breath for one week. The patient complains of progressive shortness of breath associated with PND, wheezing, and a productive cough with clear/light yellow sputum. Denies any other sick contacts at home. Patient also presented with a blood pressure of 204/107 mmHg. Reports compliance with his losartan 50 mg q.d. therapy at home. He had an admission to this facility earlier this year where he was diagnosed with severe concentric left ventricular hypertrophy with a left ventricular septal wall thickness of 1.5 cm, nonobstructive hypertrophic cardiomyopathy, and an LVEF of 60%. At that time, he also underwent a cardiac catheterization and coronary angiogram without catheter based intervention given nonobstructive coronary artery disease. He was recommended aggressive blood pressure control with beta-blockers as well as genetic testing and family screening for hypertrophic cardiomyopathy. He was advised to follow-up with a dip lube operator as an outpatient, unfortunately somehow the patient has failed to do so. He underwent multiple 12 lead electrocardiograms revealing a sinus rhythm with ST segment depression to lateral leads and lead V4 which are similar from those ST changes from previous admission. Serial troponin levels peaked at 150 ng/L. Significant medical history includes nonobstructive hypertrophic cardiomyopathy, hypertension, dyslipidemia, and obesity. Past Medical History Past medical history reviewed. No other significant than mentioned above. Past Surgical History Past Surgical history reviewed. No other significant than mentioned above. Family History: Diabetes mellitus G8 FATHER Hypertension G8 SISTER Family History Family history reviewed. Social History Denies the use of illicit drugs, alcohol, or tobacco use. Allergies: Coded Allergies: NO KNOWN ALLERGIES (Unverified , 07/30/23) Home Meds Active Scripts Albuterol Sulfate (VENTOLIN MDI) 90 Mcg Ih, 90 MCG IN PRN for 30 Days, #1 INH 3 Refills Prov:MIRIAM MACK 08/03/23 Pantoprazole Sodium Sesquihydr (Protonix) 40 Mg Tab, 40 MG PO DAILY for 30 Days, #30 TAB Prov:MIRIAM MACK 08/03/23 Metoprolol Tartrate (Lopressor) 25 Mg Tb, 12.5 MG PO BID for 30 Days, #30 TAB Prov:MIRIAM MACK 08/03/23 Atorvastatin Calcium (ATORVASTATIN CALCIUM) 20 Mg Tab, 2 TAB PO DAILY for 30 Days, #60 TAB 3 Refills Prov:MIRIAM MACK RESIDENT 08/03/23 Aspirin (Aspirin Low Dose) 81 Mg Tab, 81 MG PO DAILY for 30 Days, #30 TAB Prov:MIRIAM MACK RESIDENT 08/03/23 Reported Medications Losartan Potassium (Losartan Potassium) 50 Mg Tab, 50 MG PO DAILY for 30 Days, MG 07/31/23 Home Meds Home medications reviewed. Current Medications Current Medications Medications (Trade) Dose Ordered Sig/Elana Route PRN Reason Start Time Stop Time Status Last Admin Aspirin 162 mg DAILY PO 01/17/24 10:00 01/17/24 09:59 Atorvastatin Calcium (Lipitor) 40 mg HS PO 01/17/24 22:00 Metoprolol Tartrate (Lopressor Tablet) 12.5 mg BID PO 01/17/24 10:00 01/17/24 10:00 Losartan Potassium (Cozaar Tablet) 50 mg DAILY PO 01/17/24 10:00 01/17/24 10:00 Albuterol (Ventolin Medneb) 2.5 mg Q6HPRN PRN NEB SHORTNESS OF BREATH 01/17/24 05:30 Temazepam (Restoril) 15 mg QHSP PRN PO FOR INSOMNIA 01/17/24 05:30 Ondansetron HCl (Zofran) 4 mg Q4HP PRN IV NAUSEA / VOMITING 01/17/24 05:30 Acetaminophen (Tylenol Tablet) 650 mg Q6HP PRN PO PAIN SCALE 1-3 OR TEMP>100.4 01/17/24 05:30 Nitroglycerin (Ntrostat Sublingual) 0.4 mg Q5MINP PRN SL FOR CHEST PAIN 01/17/24 05:30 Morphine Sulfate 2 mg Q30M PRN IV FOR CHEST PAIN 01/17/24 05:30 Review of Systems Constitutional: No symptom reported Ears, Nose, & Throat: No symptom reported Eyes: No symptom reported Neurological: No symptoms reported Pulmonary/Respiratory: SOB, PND, productive cough Cardiovascular: No symptom reported Gastrointestinal: No symptom reported Genitourinary: No symptom reported Musculoskeletal: No symptom reported Skin: No symptom reported Psychiatric: No symptom reported Endocrine: No symptom reported Hemotologic/Lymphatic: No symptom reported Vital Signs Vital Signs Date Time Temp Pulse Resp B/P (MAP) Pulse Ox O2 Delivery O2 Flow Rate FiO2 01/17/24 14:00 83 15 132/84 (100) 94 01/17/24 08:05 21 01/17/24 08:00 97.8 97.8 01/17/24 07:19 Room Air* 0 Physical Exam General Appearance: Cooperative. Well developed. Obese. In no acute distress Head Exam: Normal inspection Neck Exam: Normal inspection. Non-tender. Normal alignment Pulmonary/Respiratory: Chest non-tender. Clear bilateral breath sounds Cardiovascular/Chest: Regular rate and rhythm. S1, S2. Sinus rhythm with ST segment depression to lead V4 and lateral leads. Systolic murmur II/. No JVD. Peripheral Pulses: 2+ Radial (R). 2+ Radial (L). 2+ Pedal (R). 2+ Pedal (L) Abdominal Exam: Normal bowel sounds. Soft. Nontender. No hepatospenomegaly. No masses Ankle Exam: Negative ankle edema Lower extremities: Negative lower extremity edema Neuro/Mental Status: A&O x4. Coherent Thoughts/Psych: Normal thought pattern. Appropriate mood and affect. Good judgement and insight Appearance: In no acute distress Skin Exam: Normal inspection. Normal color. Warm. Dry Labs/Diagnostic Data Labs Test 01/17/24 03:36 01/17/24 02:56 01/16/24 23:46 Range/Units Urine Color Yellow Yellow Urine Clarity Clear Clear Urine pH 6.0 5.0-9.0 Urine Specific [place] 1.024 1.001-1.035 Urine Protein Trace H Negative Urine Ketones Negative Negative Urine Blood Negative Negative /uL Urine Nitrite Negative Negative Urine Bilirubin Negative Negative Urine Urobilinogen Normal Negative mg/dL Urine Leukocyte Esterase Negative Negative /uL Urine RBC 1 0 - 3 /hpf Urine WBC 1 0 - 3 /hpf Urine Squamous Epithelial Cells None seen <5 /hpf Urine Bacteria None seen None Seen /hpf Urine Mucus Few None Seen Urine Glucose Normal Normal mg/dL Troponin I High Sensitivity 126 *H </=54 ng/L White Blood Count 6.2 4.4-10.8 10^3/uL Red Blood Count 5.19 4.5-5.90 10^6/uL Hemoglobin 15.6 13.5-17.5 g/dL Hematocrit 45.3 41.0-53.0 % Mean Corpuscular Volume 87.3 80.0-100.0 fL Mean Corpuscular Hemoglobin 30.1 28.0-32.0 pg Mean Corpuscular Hemoglobin Concent 34.5 32.0-36.0 g/dL Red Cell Distribution Width 12.6 11.8-14.3 % Platelet Count 201 140-450 10^3/uL Mean Platelet Volume 9.2 6.9-10.8 fL Neutrophils (%) (Auto) 40.5 37.0-80.0 % Lymphocytes (%) (Auto) 47.0 10.0-50.0 % Monocytes (%) (Auto) 7.6 0.0-12.0 % Eosinophils (%) (Auto) 3.9 0.0-7.0 % Basophils (%) (Auto) 1.0 0.0-2.0 % Neutrophils # (Auto) 2.5 1.6-8.6 10 ^3/uL Lymphocytes # (Auto) 2.9 0.4-5.4 10 ^3/uL Monocytes # (Auto) 0.5 0-1.3 10 ^3/uL Eosinophils # (Auto) 0.2 0-0.8 10 ^3/uL Basophils # (Auto) 0.1 0-0.2 10 ^3/uL Nucleated Red Blood Cells 0.1 % Sodium Level 142 136-145 mmol/L Potassium Level 3.1 L 3.5-5.1 mmol/L Chloride Level 106 98-107 mmol/L Carbon Dioxide Level 30 20-31 mmol/L Anion Gap 6 5-15 Blood Urea Nitrogen 12 9-23 mg/dL Creatinine 0.99 0.700-1.30 mg/dL Glomerular Filtration Rate Calc 94 >90 mL/min BUN/Creatinine Ratio 12.1 10.0-20.0 Serum Glucose 98 74-106 mg/dL Calcium Level 9.1 8.7-10.4 mg/dL B-Type Natriuretic Peptide 41.67 0-100 pg/mL Assessment Hypertensive urgency Nonobstructive hypertrophic cardiomyopathy NSTEMI type 2 secondary to above Rule out progressive structural heart disease Dyslipidemia Hypokalemia Medical noncompliance Obesity Plan/Recommendation (Dr. Linares) The patient underwent a previous transthoracic echocardiogram revealing an EF of 60% and severe concentric left ventricular hypertrophy with maximal left ventricle septal wall thickness of 1.5 cm. Given acute symptoms of SOB and PND, we will obtain a repeat transthoracic echocardiogram to rule out progressive structural heart disease. Negative inotropic and chronotropic agents are imperative for diastolic filling improvement. Discontinue losartan therapy and up-titrate metoprolol tartrate to attain systolic blood pressures in the low 100s mmHg. Uptitrate BB to a total of 100-450 mg/day if able to tolerate. We also recommend outpatient genetic testing and family screening for HCM. Patient is to follow-up with Cardiology as outpatient. Further recommendations to follow. Thank you for allowing us to participate in this patient's care. Please call if you have any questions or concerns. Critical care time: 40 min. This medical document was created using an [employer] medical record system with voice recognition software and computerized dictation system. Although this document has been carefully reviewed, there might still be some phonetic and typographical errors. Occasional wrong-word or ``sound-alike substitutions may have occurred due to the inherent limitations of voice recognition software. These areas are purely typographical due to imperfections of the software programs and do not reflect any compromise in the patient's medical care. Please read the chart carefully and recognize, using context, where these substitutions have occurred. Plan discussed with: Patient, Other ([place]ieces x 2) Date of Service: Jan 17, 2024 Billing Provider: LAVELLE LINARES MD Cardiology Common Codes: [id number] CARE 30-74 MIN SARAY ZUNIGA [facility] Jan 17, 2024 17:00
[2024-01-17] MEDS: METOPROLOL TARTRATE 50 MG TAB PO SCH (21:21)
[2024-01-17] MEDS: ATORVASTATIN 20 MG TAB PO SCH (21:21)
[2024-01-18] VITALS (11 sets, daily range): BP systolic 129–153; BP diastolic 75–88; PULSE 54–75; RESP 16–20; TEMP 97.6–98.4; O2SAT 93–99
[2024-01-18 05:06] LABS: Basophils # (auto) 0 10 ^3/uL (0-0.2); Basophils % (auto) 0.4 % (0.0-2.0); Eosinophils # (auto) 0.1 10 ^3/uL (0-0.8); Eosinophils % (auto) 0.6 % (0.0-7.0); Hematocrit 45.5 % (41.0-53.0); Hemoglobin 15.6 g/dL (13.5-17.5); Lymphocytes # (auto) 3.2 10 ^3/uL (0.4-5.4); Lymphocytes % (auto) 27.6 % (10.0-50.0); Mean Corpuscular Hemoglobin 30.4 pg (28.0-32.0); Mean Corpuscular Hgb Conc. 34.2 g/dL (32.0-36.0); Mean Corpuscular Volume 88.8 fL (80.0-100.0); Monocytes # (auto) 0.8 10 ^3/uL (0-1.3); Monocytes % (auto) 6.9 % (0.0-12.0); Neutrophils # (auto) 7.5 10 ^3/uL (1.6-8.6); Neutrophils % (auto) 64.5 % (37.0-80.0); Platelet Count (auto) 207 10^3/uL (140-450); Red Blood Cells 5.12 10^6/uL (4.5-5.90); Red Cell Distribution Width 12.8 % (11.8-14.3); White Blood Cell 11.6 10^3/uL (4.4-10.8)
[2024-01-18 05:24] LABS: Alanine Aminotransferase 29 U/L (7-40); Albumin 4.2 g/dL (3.2-4.8); Alkaline Phosphatase 66 U/L (46-116); Anion Gap 8 (5-15); Aspartate Aminotransferase 16 U/L (13-40); BUN/Creatinine Ratio 20.9 (10.0-20.0); Bilirubin, Total 0.7 mg/dL (0.2-1.0); Blood Urea Nitrogen 23 mg/dL (9-23); Calcium 9.7 mg/dL (8.7-10.4); Carbon Dioxide 27 mmol/L (20-31); Chloride 108 mmol/L (98-107); Glucose 106 mg/dL (74-106); Magnesium 2.4 mg/dL (1.6-2.6); Potassium 3.5 mmol/L (3.5-5.1); Sodium 143 mmol/L (136-145); Total Protein 6.5 g/dL (5.7-8.2)
--- NOTE | 2024-01-18 09:32 | DVH ---
CHEST RADIOGRAPH Indication:SOB Technique: Single frontal view of the chest was obtained COMPARISON: XY CHEST PORTABLE on DOS: 07/31/23 FINDINGS: Lines and Tubes: None Lungs: Clear Pleura: No effusion. No pneumothorax. Cardiomediastinal contours: Cardiomegaly Bones: Unremarkable IMPRESSION: Cardiomegaly
[2024-01-18] MEDS ORDERED: ATOR-507 PO (09:46)
--- NOTE | 2024-01-18 11:01 | DVHINCON2 ---
Date Seen: Jan 18, 2024 Family History: Diabetes mellitus G8 FATHER Hypertension G8 SISTER Allergies: Coded Allergies: NO KNOWN ALLERGIES (Unverified , 07/30/23) Home Meds Active Scripts Albuterol Sulfate (VENTOLIN MDI) 90 Mcg Ih, 90 MCG IN PRN for 30 Days, #1 INH 3 Refills Prov:MIRIAM MACK RESIDENT 08/03/23 Pantoprazole Sodium Sesquihydr (Protonix) 40 Mg Tab, 40 MG PO DAILY for 30 Days, #30 TAB Prov:MIRIAM MACK RESIDENT 08/03/23 Metoprolol Tartrate (Lopressor) 25 Mg Tb, 12.5 MG PO BID for 30 Days, #30 TAB Prov:MIRIAM MACK RESIDENT 08/03/23 Aspirin (Aspirin Low Dose) 81 Mg Tab, 81 MG PO DAILY for 30 Days, #30 TAB Prov:MIRIAM MACK [facility] 08/03/23 Reported Medications Atorvastatin Calcium (Lipitor) 40 Mg Tab, 40 MG PO DAILY, TAB 01/18/24 Losartan Potassium (Losartan Potassium) 50 Mg Tab, 50 MG PO DAILY for 30 Days, MG 07/31/23 Current Medications Current Medications Medications (Trade) Dose Ordered Sig/Elana Route PRN Reason Start Time Stop Time Status Last Admin Atorvastatin Calcium (Lipitor) 40 mg HS PO 01/17/24 22:00 01/17/24 21:21 Metoprolol Tartrate (Lopressor Tablet) 50 mg BID PO 01/17/24 22:00 01/18/24 09:39 Vital Signs Vital Signs Date Time Temp Pulse Resp B/P (MAP) Pulse Ox O2 Delivery O2 Flow Rate FiO2 01/18/24 09:39 66 153/88 01/18/24 09:00 98.4 20 94 98.4 01/17/24 21:11 Room Air 01/17/24 21:11 0 N/A Labs/Diagnostic Data Labs Test 01/18/24 04:21 01/17/24 03:36 01/17/24 02:56 01/16/24 23:46 Range/Units White Blood Count 11.6 #H 4.4-10.8 10^3/uL Red Blood Count 5.12 4.5-5.90 10^6/uL Hemoglobin 15.6 13.5-17.5 g/dL Hematocrit 45.5 41.0-53.0 % Mean Corpuscular Volume 88.8 80.0-100.0 fL Mean Corpuscular Hemoglobin 30.4 28.0-32.0 pg Mean Corpuscular Hemoglobin Concent 34.2 32.0-36.0 g/dL Red Cell Distribution Width 12.8 11.8-14.3 % Platelet Count 207 140-450 10^3/uL Mean Platelet Volume 9.6 6.9-10.8 fL Neutrophils (%) (Auto) 64.5 37.0-80.0 % Lymphocytes (%) (Auto) 27.6 10.0-50.0 % Monocytes (%) (Auto) 6.9 0.0-12.0 % Eosinophils (%) (Auto) 0.6 0.0-7.0 % Basophils (%) (Auto) 0.4 0.0-2.0 % Neutrophils # (Auto) 7.5 1.6-8.6 10 ^3/uL Lymphocytes # (Auto) 3.2 0.4-5.4 10 ^3/uL Monocytes # (Auto) 0.8 0-1.3 10 ^3/uL Eosinophils # (Auto) 0.1 0-0.8 10 ^3/uL Basophils # (Auto) 0 0-0.2 10 ^3/uL Nucleated Red Blood Cells 0.0 % Sodium Level 143 136-145 mmol/L Potassium Level 3.5 3.5-5.1 mmol/L Chloride Level 108 H 98-107 mmol/L Carbon Dioxide Level 27 20-31 mmol/L Anion Gap 8 5-15 Blood Urea Nitrogen 23 # 9-23 mg/dL Creatinine 1.10 0.700-1.30 mg/dL Glomerular Filtration Rate Calc 83 >90 mL/min BUN/Creatinine Ratio 20.9 H 10.0-20.0 Serum Glucose 106 74-106 mg/dL Calcium Level 9.7 8.7-10.4 mg/dL Magnesium Level 2.4 1.6-2.6 mg/dL Total Bilirubin 0.7 0.2-1.0 mg/dL Aspartate Amino Transferase (AST) 16 13-40 U/L Alanine Aminotransferase (ALT) 29 7-40 U/L Alkaline Phosphatase 66 46-116 U/L Total Protein 6.5 5.7-8.2 g/dL Albumin 4.2 3.2-4.8 g/dL Urine Color Yellow Yellow Urine Clarity Clear Clear Urine pH 6.0 5.0-9.0 Urine Specific [place] 1.024 1.001-1.035 Urine Protein Trace H Negative Urine Ketones Negative Negative Urine Blood Negative Negative /uL Urine Nitrite Negative Negative Urine Bilirubin Negative Negative Urine Urobilinogen Normal Negative mg/dL Urine Leukocyte Esterase Negative Negative /uL Urine RBC 1 0 - 3 /hpf Urine WBC 1 0 - 3 /hpf Urine Squamous Epithelial Cells None seen <5 /hpf Urine Bacteria None seen None Seen /hpf Urine Mucus Few None Seen Urine Glucose Normal Normal mg/dL Troponin I High Sensitivity 126 *H </=54 ng/L B-Type Natriuretic Peptide 41.67 0-100 pg/mL JOSÉ MIGUEL JOHNSON RESIDENT Jan 18, 2024 11:01
--- NOTE | 2024-01-18 12:00 | DVHPN2 ---
Subjective The patient seen and examined at bedside. The patient still complains of his discomfort. Reviewed: Care Plan, H&P, Labs, Medications, Previous Orders, Radiology Changes from previous H/P or p: No Changes Objective Vitals Vital Signs Date Time Temp Pulse Resp B/P (MAP) Pulse Ox O2 Delivery O2 Flow Rate FiO2 01/18/24 10:00 96 Room Air* 0 21 01/18/24 09:39 66 153/88 01/18/24 09:00 98.4 20 98.4 Intake/Output Intake and Output 01/18/24 07:00 Intake Total 360 ml Balance 360 ml Intake Oral 360 ml General Appearance: Alert, Oriented X3, Cooperative, No acute distress HEENT: Atraumatic, PERRLA, EOMI, Mucous membr. moist/pink Neck: Supple Lungs: Clear to auscultation, Normal air movement Cardiovascular: Regular rate, Normal S1, Normal S2, No murmurs, Gallops, Rubs Abdomen: Normal bowel sounds, Soft, No tenderness Neuro: Cranial nerves 3-12 NL Psych/Mental Status: Mental status NL Medications Current Medications Medications Dose Ordered Sig/Elana Route Start Time Stop Time Status Last Admin Dose Admin Atorvastatin Calcium 40 mg HS PO 01/17/24 22:00 01/17/24 21:21 40 MG Albuterol 2.5 mg Q6HPRN PRN NEB 01/17/24 05:30 Temazepam 15 mg QHSP PRN PO 01/17/24 05:30 Ondansetron HCl 4 mg Q4HP PRN IV 01/17/24 05:30 Acetaminophen 650 mg Q6HP PRN PO 01/17/24 05:30 Nitroglycerin 0.4 mg Q5MINP PRN SL 01/17/24 05:30 Morphine Sulfate 2 mg Q30M PRN IV 01/17/24 05:30 Metoprolol Tartrate 50 mg BID PO 01/17/24 22:00 01/18/24 09:39 50 MG Laboratory Results Laboratory Tests 01/18/24 04:21 Chemistry Test 01/18/24 04:21 Albumin 4.2 g/dL (3.2-4.8) Calcium Level 9.7 mg/dL (8.7-10.4) Magnesium Level 2.4 mg/dL (1.6-2.6) Total Protein 6.5 g/dL (5.7-8.2) LFT Test 01/18/24 04:21 Alanine Aminotransferase (ALT) 29 U/L (7-40) Alkaline Phosphatase 66 U/L (46-116) Aspartate Amino Transferase (AST) 16 U/L (13-40) Total Bilirubin 0.7 mg/dL (0.2-1.0) Urinalysis Test 01/17/24 03:36 Urine Color Yellow (Yellow) Urine Clarity Clear (Clear) Urine pH 6.0 (5.0-9.0) Urine Specific [place] 1.024 (1.001-1.035) Urine Protein Trace (Negative) H Urine Ketones Negative (Negative) Urine Blood Negative /uL (Negative) Urine Nitrite Negative (Negative) Urine Bilirubin Negative (Negative) Urine Urobilinogen Normal mg/dL (Negative) Urine Leukocyte Esterase Negative /uL (Negative) Urine RBC 1 /hpf (0 - 3) Urine WBC 1 /hpf (0 - 3) Urine Squamous Epithelial Cells None seen /hpf (<5) Urine Bacteria None seen /hpf (None Seen) Urine Mucus Few (None Seen) Urine Glucose Normal mg/dL (Normal) Labs and/or images reviewed: Labs reviewed by me Assessment/Plan Assessment/Plan Elevated troponin rule out NSTEMI Respiratory distress Hypertension History of NH Continue current management. I will consult University Teacher. Continue HTN meds. Plan discussed with: Patient My Orders Orders - STEPHANIE PAGE MD Procedure Category Date Status Time * Cardiology Consult CONS 01/17/24 Transmitted 12:19 Date of Service: Jan 18, 2024 Billing Provider: STEPHANIE PAGE MD Common Visit Codes: [id number] INP/OBS CARE(HIGH) STEPHANIE PAGE MD Jan 18, 2024 12:00
--- NOTE | 2024-01-18 12:02 | DVHDS2 ---
Discharge Summary Date of Admission Jan 17, 2024 at 05:32 Date of Discharge: Jan 18, 2024 Labs/Diagnostic Data: Laboratory Results Test 01/18/24 04:21 01/17/24 03:36 01/17/24 02:56 01/16/24 23:46 White Blood Count 11.6 10^3/uL (4.4-10.8) Red Blood Count 5.12 10^6/uL (4.5-5.90) Hemoglobin 15.6 g/dL (13.5-17.5) Hematocrit 45.5 % (41.0-53.0) Mean Corpuscular Volume 88.8 fL (80.0-100.0) Mean Corpuscular Hemoglobin 30.4 pg (28.0-32.0) Mean Corpuscular Hemoglobin Concent 34.2 g/dL (32.0-36.0) Red Cell Distribution Width 12.8 % (11.8-14.3) Platelet Count 207 10^3/uL (140-450) Mean Platelet Volume 9.6 fL (6.9-10.8) Neutrophils (%) (Auto) 64.5 % (37.0-80.0) Lymphocytes (%) (Auto) 27.6 % (10.0-50.0) Monocytes (%) (Auto) 6.9 % (0.0-12.0) Eosinophils (%) (Auto) 0.6 % (0.0-7.0) Basophils (%) (Auto) 0.4 % (0.0-2.0) Neutrophils # (Auto) 7.5 10 ^3/uL (1.6-8.6) Lymphocytes # (Auto) 3.2 10 ^3/uL (0.4-5.4) Monocytes # (Auto) 0.8 10 ^3/uL (0-1.3) Eosinophils # (Auto) 0.1 10 ^3/uL (0-0.8) Basophils # (Auto) 0 10 ^3/uL (0-0.2) Nucleated Red Blood Cells 0.0 % Sodium Level 143 mmol/L (136-145) Potassium Level 3.5 mmol/L (3.5-5.1) Chloride Level 108 mmol/L (98-107) Carbon Dioxide Level 27 mmol/L (20-31) Anion Gap 8 (5-15) Blood Urea Nitrogen 23 mg/dL (9-23) Creatinine 1.10 mg/dL (0.700-1.30) Glomerular Filtration Rate Calc 83 mL/min (>90) BUN/Creatinine Ratio 20.9 (10.0-20.0) Serum Glucose 106 mg/dL (74-106) Calcium Level 9.7 mg/dL (8.7-10.4) Magnesium Level 2.4 mg/dL (1.6-2.6) Total Bilirubin 0.7 mg/dL (0.2-1.0) Aspartate Amino Transferase (AST) 16 U/L (13-40) Alanine Aminotransferase (ALT) 29 U/L (7-40) Alkaline Phosphatase 66 U/L (46-116) Total Protein 6.5 g/dL (5.7-8.2) Albumin 4.2 g/dL (3.2-4.8) Urine Color Yellow (Yellow) Urine Clarity Clear (Clear) Urine pH 6.0 (5.0-9.0) Urine Specific [place] 1.024 (1.001-1.035) Urine Protein Trace (Negative) Urine Ketones Negative (Negative) Urine Blood Negative /uL (Negative) Urine Nitrite Negative (Negative) Urine Bilirubin Negative (Negative) Urine Urobilinogen Normal mg/dL (Negative) Urine Leukocyte Esterase Negative /uL (Negative) Urine RBC 1 /hpf (0 - 3) Urine WBC 1 /hpf (0 - 3) Urine Squamous Epithelial Cells None seen /hpf (<5) Urine Bacteria None seen /hpf (None Seen) Urine Mucus Few (None Seen) Urine Glucose Normal mg/dL (Normal) Troponin I High Sensitivity 126 ng/L (</=54) B-Type Natriuretic Peptide 41.67 pg/mL (0-100) Other Laboratory Tests 01/18/24 04:21 Final Diagnosis/Problems List chest pain Discharge Disposition: Home Discharge Instruct/Medications Diet: Cardiac 2g Na,low cholest Activity: No Restrictions, As Tolerated Follow Up/Referral: pcp 1-2 weeks chief data officer per schedule. Medications: Resume home meds Discharge Statement: "Patient was advised to return to the ER or call 911 if any headaches, dizziness, shortness of breath, chest pain, abdominal pain, bleeding, fevers, or worsening of medical condition. Patient was counseled about treatment plan, medications, possible side effects, patientverbalized understanding. All questions were answered to the best of my ability. This discharge took greater then 30 minutes in planning, reviewing documentation, counseling the patient, and discussing with other team members." ASSESSMENT ASSESSMENT Assessment chest pain STEPHANIE PAGE MD Jan 18, 2024 12:02
--- NOTE | 2024-01-18 12:50 | DVHSR ---
APPROVED REPORT EXAM: Two-dimensional and M-mode echocardiogram with Doppler and color Doppler. Blood Pressure: 138/85 mmHg INDICATION HCM RISK FACTORS Height: 69, Weight: 220 DIMENSIONS LVDd4.5 (3.8-5.7cm)LA (2D)5.4 (1.9-4.0cm)Aortic Root4.1 (2.0-3.7cm) LVDs2.8 (2.5-4.0cm)LA (MM) (1.9-4.0cm)Aortic Cusp Exc2.5 (1.5-2.0cm) EF (%) 68.0 (55-70%)Rt. Atrium4.8 (1.9-4.0cm)Asc. Aorta cm Mitral Valve MitralMitral Stenosis E wave0.49m/sMV Mean GR.mmHg A wave0.55m/sMV Peak GR.mmHg E/A ratio0.92D MVAcm2 DECEL [id number] 1/2 [id number] IVRTmsDop MVA4.75cm2 Aortic Valve Aortic ValveAortic Stenosis V11.03m/Bambi Mean GR.4mmHg V21.26m/Bambi Peak GR.6mmHg LVOT Diameter2.6 (1.8-2.4cm)Doppler AVA4.34cm2 Pulmonic Valve V21.01m/s Tricuspid Valve TR Velocity2.30m/s [id number] Conclusion Severe concentric left ventricular hypertrophy, findings likely representing hypertrophic cardiomyopa thy. Estimated ejection fraction is 60%, There is no significant left ventricular outflow gradient to suggest obstruction. There is a grade diastolic dysfunction. Normal right ventricular size and dimension. Normal right ventricular systolic function. Normal biatrial size and dimension Normal aortic valve structure and function. Normal mitral valve structure function. Normal tricuspid valve structure and function. The pulmonary valve is grossly normal. No pericardial effusion.
[2024-01-18] MEDS: COLCHICINE 0.6 MG CAP PO ONE (15:00)
--- NOTE | 2024-01-18 15:21 | DVHPN2 ---
Consult Progress Note Date Seen: Jan 18, 2024 Subjective Patient reports: Other Review of Systems: HEENT:Normal, CVS:Abnormal, RESPIRATORY:Abnormal, GI:Abnormal, :Normal, MSK:Normal, NEURO:Normal Objective vital signs Vital Sign Date Time Temp Pulse Resp B/P (MAP) Pulse Ox O2 Delivery O2 Flow Rate FiO2 01/18/24 13:55 98.0 55 18 139/80 (99) 94 98.0 01/18/24 10:00 Room Air* 0 21 Total Intake and Output 01/17/24 01/17/24 01/18/24 15:00 23:00 07:00 Intake Total 240 ml 120 ml Balance 240 ml 120 ml medications Current Medications Medications Dose Ordered Sig/Elana Route Start Time Stop Time Status Last Admin Dose Admin Atorvastatin Calcium 40 mg HS PO 01/17/24 22:00 01/17/24 21:21 40 MG Albuterol 2.5 mg Q6HPRN PRN NEB 01/17/24 05:30 Temazepam 15 mg QHSP PRN PO 01/17/24 05:30 Ondansetron HCl 4 mg Q4HP PRN IV 01/17/24 05:30 Acetaminophen 650 mg Q6HP PRN PO 01/17/24 05:30 Nitroglycerin 0.4 mg Q5MINP PRN SL 01/17/24 05:30 Morphine Sulfate 2 mg Q30M PRN IV 01/17/24 05:30 Metoprolol Tartrate 50 mg BID PO 01/17/24 22:00 01/18/24 09:39 50 MG Colchicine 0.6 mg Q12HR PO 01/18/24 22:00 Examination: GENERAL:Abnormal, HEENT:Normal, NECK:Normal, LUNGS:Normal, CVS:Abnormal, ABDOMEN:Normal, MSK:Normal, SKIN:Normal, NEURO:Normal, :Normal laboratory and microbiology Laboratory Tests 01/18/24 04:21 Test 01/18/24 04:21 Range/Units Serum Glucose 106 74-106 mg/dL Problem List/Assessment/Plan Problem List/Assessment/Plan Assessment Hypertensive urgency Nonobstructive hypertrophic cardiomyopathy, rule out myocarditis NSTEMI type 2 secondary to above Rule out progressive structural heart disease Dyslipidemia Hypokalemia Medical noncompliance Obesity Plan/Recommendation colchicine 0.6 mg BID The patient underwent a previous transthoracic echocardiogram revealing an EF of 60% and severe concentric left ventricular hypertrophy with maximal left ventricle septal wall thickness of 1.5 cm on . Recent echo showed EF 60%, no significant left ventricular outflow gradient to suggest obstruction. Cardiac MRI as an outpatient Uptitrate BB to a total of 100-450 mg/day if able to tolerate. Patient is to follow-up with Cardiology as outpatient. Thank you for allowing us participate in this case. Please call if you have any questions or concerns. Case discussed with Dr. Finney Critical care, time spent 54 minutes Plan discussed with: Patient Date of Service: Jan 18, 2024 Billing Provider: LAVELLE FINNEY MD Cardiology Common Codes: [id number] [facility] JOSÉ MIGUEL JOHNSON RESIDENT Jan 18, 2024 15:21
[2024-01-18] MEDS: COLCHICINE 0.6 MG CAP PO SCH (21:38)
[2024-01-18] MEDS: ALBUTEROL SULF 2.5 MG/0.5ML(0.5%) NEB SOLN NEB PRN (22:20)
[2024-01-19] VITALS (9 sets, daily range): BP systolic 121–157; BP diastolic 76–97; PULSE 56–70; RESP 18–20; TEMP 36.3; O2SAT 95–96
[2024-01-19] MEDS: TEMAZEPAM 15 MG CAP PO PRN (01:08)
--- NOTE | 2024-01-19 10:04 | DVHPN2 ---
Consult Progress Note Date Seen: Jan 19, 2024 Subjective Review of Systems: CVS:Normal, RESPIRATORY:Normal, NEURO:Normal Other Systems: C/o anxiety Objective vital signs Vital Sign Date Time Temp Pulse Resp B/P (MAP) Pulse Ox O2 Delivery O2 Flow Rate FiO2 01/19/24 05:00 97.5 56 19 145/92 (109) 96 97.5 01/18/24 22:17 Room Air* 0 21 Total Intake and Output 01/18/24 01/18/24 01/19/24 15:00 23:00 07:00 Intake Total 1680 ml 1200 ml Balance 1680 ml 1200 ml medications Current Medications Medications Dose Ordered Sig/Elana Route Start Time Stop Time Status Last Admin Dose Admin Atorvastatin Calcium 40 mg HS PO 01/17/24 22:00 01/18/24 21:39 40 MG Albuterol 2.5 mg Q6HPRN PRN NEB 01/17/24 05:30 01/18/24 22:20 2.5 MG Temazepam 15 mg QHSP PRN PO 01/17/24 05:30 01/19/24 01:08 15 MG Ondansetron HCl 4 mg Q4HP PRN IV 01/17/24 05:30 Acetaminophen 650 mg Q6HP PRN PO 01/17/24 05:30 Nitroglycerin 0.4 mg Q5MINP PRN SL 01/17/24 05:30 Morphine Sulfate 2 mg Q30M PRN IV 01/17/24 05:30 Metoprolol Tartrate 50 mg BID PO 01/17/24 22:00 01/18/24 21:42 50 MG Colchicine 0.6 mg Q12HR PO 01/18/24 22:00 01/18/24 21:38 0.6 MG Examination: GENERAL:Abnormal (Anxious), LUNGS:Normal, CVS:Normal, NEURO:Normal laboratory and microbiology Laboratory Tests 01/18/24 04:21 Test 01/18/24 04:21 Range/Units Serum Glucose 106 74-106 mg/dL Problem List/Assessment/Plan Problem List/Assessment/Plan Hypertensive urgency Nonobstructive hypertrophic cardiomyopathy NSTEMI type 2 secondary to above Dyslipidemia Hypokalemia Medical noncompliance Obesity Plan/Recommendation (Dr. Watkins) Repeat echocardiogram revealed EF of 60% with no significant left ventricular outflow gradient to suggest obstruction. Continue negative inotropic and chronotropic agents which are imperative for diastolic filling improvement. Continue metoprolol tartrate to attain systolic blood pressures in the low 100s mmHg. Uptitrate BB to a total of 100-450 mg/day if able to tolerate. Continue lipid-lowering agent. We also recommend outpatient cardiac MRI, genetic testing, and family screening for HCM. Patient is to follow-up with Cardiology as outpatient within 3-4 weeks post-discharge. There is no further cardiac work-up indicated at this time. Please call if in need to re-consult. Thank you for allowing us to participate in this patient's care. Critical care time: 40 min. This medical document was created using an electronic medical record system with voice recognition software and computerized dictation system. Although this document has been carefully reviewed, there might still be some phonetic and typographical errors. Occasional wrong-word or ``sound-alike substitutions may have occurred due to the inherent limitations of voice recognition software. These areas are purely typographical due to imperfections of the software programs and do not reflect any compromise in the patient's medical care. Please read the chart carefully and recognize, using context, where these substitutions have occurred. Plan discussed with: Patient, Other Date of Service: Jan 19, 2024 Billing Provider: LAVELLE WATKINS MD Cardiology Common Codes: [id number] INP/OBS CARE([facility] [place]) SARAY ZUNIGA [facility] Jan 19, 2024 10:04
--- NOTE | 2024-01-19 14:31 | DVHPN2 ---
Objective Vitals Vital Signs Date Time Temp Pulse Resp B/P (MAP) Pulse Ox O2 Delivery O2 Flow Rate FiO2 01/19/24 13:00 97.4 58 20 133/76 (95) 96 97.4 01/19/24 10:00 Room Air 0.0 01/19/24 10:00 21 Intake/Output Intake and Output 01/19/24 07:00 Intake Total 2880 ml Balance 2880 ml Intake Oral 2880 ml # Voids 15 Medications Current Medications Medications Dose Ordered Sig/Elana Route Start Time Stop Time Status Last Admin Dose Admin Atorvastatin Calcium 40 mg HS PO 01/17/24 22:00 01/18/24 21:39 40 MG Albuterol 2.5 mg Q6HPRN PRN NEB 01/17/24 05:30 01/18/24 22:20 2.5 MG Temazepam 15 mg QHSP PRN PO 01/17/24 05:30 01/19/24 01:08 15 MG Ondansetron HCl 4 mg Q4HP PRN IV 01/17/24 05:30 Acetaminophen 650 mg Q6HP PRN PO 01/17/24 05:30 Nitroglycerin 0.4 mg Q5MINP PRN SL 01/17/24 05:30 Morphine Sulfate 2 mg Q30M PRN IV 01/17/24 05:30 Metoprolol Tartrate 50 mg BID PO 01/17/24 22:00 01/19/24 09:55 50 MG Colchicine 0.6 mg Q12HR PO 01/18/24 22:00 01/19/24 09:54 0.6 MG Laboratory Results Laboratory Tests 01/18/24 04:21 Urinalysis Test 01/17/24 03:36 Urine Color Yellow (Yellow) Urine Clarity Clear (Clear) Urine pH 6.0 (5.0-9.0) Urine Specific [place] 1.024 (1.001-1.035) Urine Protein Trace (Negative) H Urine Ketones Negative (Negative) Urine Blood Negative /uL (Negative) Urine Nitrite Negative (Negative) Urine Bilirubin Negative (Negative) Urine Urobilinogen Normal mg/dL (Negative) Urine Leukocyte Esterase Negative /uL (Negative) Urine RBC 1 /hpf (0 - 3) Urine WBC 1 /hpf (0 - 3) Urine Squamous Epithelial Cells None seen /hpf (<5) Urine Bacteria None seen /hpf (None Seen) Urine Mucus Few (None Seen) Urine Glucose Normal mg/dL (Normal) STEPHANIE PAGE MD Jan 19, 2024 14:31
--- NOTE | 2024-01-19 15:13 | DVHDS2 ---
Discharge Summary Date of Admission Jan 17, 2024 at 05:32 Date of Discharge: Jan 19, 2024 Admitting Diagnosis Elevated troponin rule out NSTEMI Respiratory distress Hypertension History of [place] Labs/Diagnostic Data: Laboratory Results Test 01/18/24 04:21 01/17/24 03:36 01/17/24 02:56 01/16/24 23:46 White Blood Count 11.6 10^3/uL (4.4-10.8) Red Blood Count 5.12 10^6/uL (4.5-5.90) Hemoglobin 15.6 g/dL (13.5-17.5) Hematocrit 45.5 % (41.0-53.0) Mean Corpuscular Volume 88.8 fL (80.0-100.0) Mean Corpuscular Hemoglobin 30.4 pg (28.0-32.0) Mean Corpuscular Hemoglobin Concent 34.2 g/dL (32.0-36.0) Red Cell Distribution Width 12.8 % (11.8-14.3) Platelet Count 207 10^3/uL (140-450) Mean Platelet Volume 9.6 fL (6.9-10.8) Neutrophils (%) (Auto) 64.5 % (37.0-80.0) Lymphocytes (%) (Auto) 27.6 % (10.0-50.0) Monocytes (%) (Auto) 6.9 % (0.0-12.0) Eosinophils (%) (Auto) 0.6 % (0.0-7.0) Basophils (%) (Auto) 0.4 % (0.0-2.0) Neutrophils # (Auto) 7.5 10 ^3/uL (1.6-8.6) Lymphocytes # (Auto) 3.2 10 ^3/uL (0.4-5.4) Monocytes # (Auto) 0.8 10 ^3/uL (0-1.3) Eosinophils # (Auto) 0.1 10 ^3/uL (0-0.8) Basophils # (Auto) 0 10 ^3/uL (0-0.2) Nucleated Red Blood Cells 0.0 % Sodium Level 143 mmol/L (136-145) Potassium Level 3.5 mmol/L (3.5-5.1) Chloride Level 108 mmol/L (98-107) Carbon Dioxide Level 27 mmol/L (20-31) Anion Gap 8 (5-15) Blood Urea Nitrogen 23 mg/dL (9-23) Creatinine 1.10 mg/dL (0.700-1.30) Glomerular Filtration Rate Calc 83 mL/min (>90) BUN/Creatinine Ratio 20.9 (10.0-20.0) Serum Glucose 106 mg/dL (74-106) Calcium Level 9.7 mg/dL (8.7-10.4) Magnesium Level 2.4 mg/dL (1.6-2.6) Total Bilirubin 0.7 mg/dL (0.2-1.0) Aspartate Amino Transferase (AST) 16 U/L (13-40) Alanine Aminotransferase (ALT) 29 U/L (7-40) Alkaline Phosphatase 66 U/L (46-116) Total Protein 6.5 g/dL (5.7-8.2) Albumin 4.2 g/dL (3.2-4.8) Urine Color Yellow (Yellow) Urine Clarity Clear (Clear) Urine pH 6.0 (5.0-9.0) Urine Specific [place] 1.024 (1.001-1.035) Urine Protein Trace (Negative) Urine Ketones Negative (Negative) Urine Blood Negative /uL (Negative) Urine Nitrite Negative (Negative) Urine Bilirubin Negative (Negative) Urine Urobilinogen Normal mg/dL (Negative) Urine Leukocyte Esterase Negative /uL (Negative) Urine RBC 1 /hpf (0 - 3) Urine WBC 1 /hpf (0 - 3) Urine Squamous Epithelial Cells None seen /hpf (<5) Urine Bacteria None seen /hpf (None Seen) Urine Mucus Few (None Seen) Urine Glucose Normal mg/dL (Normal) Troponin I High Sensitivity 126 ng/L (</=54) B-Type Natriuretic Peptide 41.67 pg/mL (0-100) Other Laboratory Tests 01/18/24 04:21 Brief Hx & Hospital Course: This is a 48 years old male come to emergency department with one week history of shortness a breath especially when he lay flat. He also found to have hypertension uncontrolled with systolic blood pressure in the 160. The patient had elevation of troponin level. The patient is noncompliant. He did not take his hypertensive medication. The patient was admitted. Cardiology was consulted. Echo was done showed hypertrophic cardiomyopathy. The patient was started on beta south and advised to follow up as outpatient with Cardiology for further workup of HCM. Repeat echocardiogram revealed EF of 60% with no significant left ventricular outflow gradient to suggest obstruction. 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 Continue metoprolol tartrate to attain systolic blood pressures in the low 100s mmHg. Uptitrate BB to a total of 100-450 mg/day if able to tolerate. Continue lipid- lowering agent. They also recommend outpatient cardiac MRI, genetic testing, and family screening for HCM. Today the patient did not complain of any shortness for breath. I will discharge the patient home. Patient is to follow- up with Cardiology as outpatient within 3-4 weeks post-discharge. Follow up with PCP 1-2 weeks. Activity as tolerated. Diet low-salt low-cholesterol diet. Physical exam: HEENT: Normocephalic atraumatic pupils equal react to light and accommodation. Extraocular muscles intact, conjunctiva pink, oropharynx moist, no thrush, no exudate. Lymphatic: No lymphadenopathy Cardiovascular exam: S1, S2 was heard. No murmurs, rubs, gallops Lung: Clear on auscultation bilaterally, no wheeze, rale, rhonchi. GI: Abdominal soft, nondistended, nontenderness, positive bowel sounds. Extremity: No crepitus, cyanosis, edema. Pedal pulses present bilateral. Full range of motion. Skin: Normal turgor, no rash. Psych: Alert, oriented x3. Neurology: No focal deficits, cranial nerve II to XII grossly intact. Condition at Discharge: Stable Final Diagnosis/Problems List Hypertensive urgency Nonobstructive hypertrophic cardiomyopathy NSTEMI type 2 secondary to HTN urgency. Dyslipidemia Hypokalemia Medical noncompliance Obesity Discharge Disposition: Home Discharge Instruct/Medications Diet: Cardiac 2g Na,low cholest Activity: No Restrictions, As Tolerated Follow Up/Referral: pcp 1-2 weeks grocery stock clerk per schedule. Medications: Resume home meds Discharge Statement: "Patient was advised to return to the ER or call 911 if any headaches, dizziness, shortness of breath, chest pain, abdominal pain, bleeding, fevers, or worsening of medical condition. Patient was counseled about treatment plan, medications, possible side effects, patientverbalized understanding. All questions were answered to the best of my ability. This discharge took greater then 30 minutes in planning, reviewing documentation, counseling the patient, and discussing with other team members." ASSESSMENT ASSESSMENT Assessment chest pain Date of Service: Jan 19, 2024 Billing Provider: STEPHANIE PAGE MD Common Visit Codes: 26527-DQX/OBS DISCH DAY >30min STEPHANIE PAGE MD Jan 19, 2024 15:13
[2024-01-19] MEDS ORDERED: COLC1CAP PO (15:15)
[2024-01-19] MEDS ORDERED: MET50T PO (15:15)
== END 2024-01-19 17:45 | disposition home or self-care (01) | DRG 199 ==
LOC: ER 23:17 → TELE 01-17 05:32 → TELE-WESTW 01-17 16:48
PROVIDERS: ADMIT Nurse Practitioner; ATTEND Internal Medicine
DX: I16.0 Hypertensive urgency (principal); I21.A1 Myocardial infarction type 2; I42.2 Other hypertrophic cardiomyopathy; E87.6 Hypokalemia; E66.9 Obesity, unspecified; E78.5 Hyperlipidemia, unspecified; K21.9 Gastro-esophageal reflux disease without esophagitis; I25.10 Atherosclerotic heart disease of native coronary artery without angina pectoris; I25.2 Old myocardial infarction; Z87.11 Personal history of peptic ulcer disease; Z91.199 Patient's noncompliance with other medical treatment and regimen due to unspecified reason; Z83.3 Family history of diabetes mellitus; Z82.49 Family history of ischemic heart disease and other diseases of the circulatory system; Z79.899 Other long term (current) drug therapy; Z79.82 Long term (current) use of aspirin; Z68.31 Body mass index [BMI] 31.0-31.9, adult
CPT/HCPCS: 36415; 71045; 80048; 80053; 81001; 83735; 83880; 84484; 85025; 93005; 93306; 94640; 96374; 99291; G0378